=== PATIENT | female | born 1980 | race Caucasian/White ===

== ENCOUNTER 2020-04-15 15:52 | Outpatient (CLI) | payer BC ==
--- NOTE | 2020-04-15 16:43 | CT ---
EXAM: CT sinuses without contrast HISTORY: Chronic sinus pressure. COMPARISON: None TECHNIQUE: Multiple contiguous axial images were obtained and a CT of the face without contrast. Sagi ttal and coronal reformats were performed. FINDINGS: No facial fractures are identified. No facial soft tissue swelling is seen. The globes and retrobulbar soft tissues are unremarkable. The visualized paranasal sinuses are well aerated without evidence of opacification. No mucosal thick ening or mucous retention cysts are seen in any of the sinuses. The bilateral maxillary ostiomeatal units are patent. A small amount of fluid is seen in the inferior right mastoid air cells. The left mastoid air cells a re well aerated. Visualized intracranial structures are unremarkable. IMPRESSION: No significant sinus disease.
== END 2020-04-15 15:53 | disposition home or self-care (01) ==
LOC: SCSCT 15:52
PROVIDERS: ATTEND Otolaryngology Plastic Surgery within the Head & Neck
DX: J32.9 Chronic sinusitis, unspecified (principal)